=== PATIENT | female | born 1940 | race Caucasian/White ===

== ENCOUNTER 2023-09-16 12:00 | Emergency (ER) | payer MEDICARE, SELFPAY ==
[2023-09-16] VITALS (25 sets, daily range): BP systolic 155–180; BP diastolic 63–73; PULSE 58–126; RESP 11–23; TEMP 36.8; O2SAT 94–99; BMI 23.8
--- NOTE | 2023-09-16 12:21 | ECG_ITS ---
[facility] Test Date: 2023-09-16 Pat Name: SAGRARIO BENITES Department: Room: - Gender: Female Clinical Review Specialist: : [id number] Requested By: [id number] Order Number: [id number] Reading MD: TYSON PEREZ Measurements Intervals [place] Rate: 65 P: 52 [place]: 184 QRS: 15 QRSD: 78 T: 28 QT: 388 QTc: 400 Interpretive Statements 1100 Sinus rhythm 9110 normal ECG Compared to ECG 09/16/2023 12:11:40 Left ventricular hypertrophy no longer present Electronically Signed On 09-16-2023 23:29:49 EST by TYSON PEREZ
--- NOTE | 2023-09-16 12:21 | XR_ITS ---
The [address] [address] Patient Name: SAGRARIO BENITES MRN: [id number] date: 1940 Sex: F Assigned Patient Location: ER Current Patient Location: ER Accession/Order Number: [id number] Exam Date: 09/16/2023 12:53 Report Date: 09/16/2023 13:23 At the request of: LINDSAY UMANA Procedure: XR chest 1V EXAMINATION: XR chest 1V HISTORY: chest pain COMPARISON: No relevant comparison available. TECHNIQUE: AP portable FINDINGS: LUNGS: Low lung volumes. Bibasilar nodules, size and density suggests granulomas VASCULATURE: No increased pulmonary vasculature. PLEURA: No pneumothorax, effusion, or pleural thickening. CARDIAC: No cardiomegaly or cardiac silhouette abnormality. MEDIASTINUM: No visible mass or adenopathy. Aortic atherosclerosis BONES: No fracture or visible bone lesion. OTHER: Negative. XR/XR chest 1V IMPRESSION: No acute disease. Electronically authenticated by: KAL MORALES Date: 09/16/2023 13:23
[2023-09-16 12:38] LABS: Basophils Absolute Auto 0.1 10^3/uL (0.0-0.1); Eosinophils Absolute Auto 0.1 10^3/uL (0.0-0.7); Eosinophils Percent Auto 2.4 % (0.9-7.0); Hematocrit 33.1 % (36.0-48.0); Hemoglobin 10.8 g/dL (12.0-16.0); Immature Granulocytes Abs Auto 0.03 10^3/uL (0.00-0.03); Immature Granulocytes Pct Auto 0.5 % (0.0-0.5); Lymphocytes Absolute Auto 1.1 10^3/uL (1.2-3.8); Lymphocytes Percent Auto 18.1 % (20.5-60.0); Mean Corpuscular HGB Conc 32.6 g/dL (29.9-35.2); Mean Corpuscular Hemoglobin 30.6 pg (26.7-34.0); Mean Corpuscular Volume 93.8 fL (81.0-99.0); Mean Platelet Volume 9.9 fL (9.5-13.5); Monocytes Absolute Auto 0.4 10^3/uL (0.3-0.8); Monocytes Percent Auto 7.5 % (1.7-12.0); Neutrophils Absolute Auto 4.1 10^3/uL (1.4-6.5); Neutrophils Percent Auto 70.5 % (43.0-75.0); Platelet Count 198 10^3/uL (150-450); Red Blood Count 3.53 10^6/uL (4.20-5.40); White Blood Count 5.9 10^3/uL (4.0-11.0)
[2023-09-16 12:51] LABS: Alanine Aminotransferase 17 U/L (14-59); Albumin Globulin Ratio 0.7; Albumin Level 3.1 g/dL (3.4-5.0); Alkaline Phosphatase 66 U/L (46-116); Anion Gap 15.1; Aspartate Amino Transferase 17 U/L (15-37); BUN Creatinine Ratio 24.5; Bilirubin Total 1.4 mg/dL (0.2-1.0); Calcium 9.1 mg/dL (8.5-10.1); Carbon Dioxide 27.4 mmol/L (21.0-32.0); Chloride 101 mmol/L (98-107); Estimated GFR (African America 60 (>=60); Estimated GFR (Non-African Ame 50 (>=60); Globulin 4.6 g/dL; Glucose 155 mg/dL (74-106); Potassium 3.5 mmol/L (3.5-5.1); Sodium 140 mmol/L (136-145); Total Protein 7.7 g/dL (6.4-8.2)
[2023-09-16 12:55] LABS: Magnesium 1.8 mg/dL (1.8-2.4)
[2023-09-16 12:56] LABS: Troponin I High Sensitivity 223.8 pg/mL (4.0-51.3)
--- NOTE | 2023-09-16 13:02 | ED_ITS ---
<Statement entered by Genna Chang MD - 09/16/23 16:00> This documentation has been reviewed and approved. pt case was discussed with me and i agree with the mentioned plan of management HPI - Chest Pain General Chief Complaint: Dizziness Stated Complaint: CHEST PAIN/DIZZINESS Time Seen by Provider: 09/16/23 12:12 Source: patient Mode of arrival: ambulance Limitations: no limitations History of Present Illness HPI narrative: 82-year-old female presents via EMS with multiple complaints. Patient complains neck pain currently however, she had chest pain, dizziness over the course of t weekend. Dizziness described as lightheaded, room spinning. Patient has had chronic symptoms of neck pain, dizziness, and chest pain since head injury in 2020. States neck is worse today. Currently denies any chest pain. Denies prior history of CAD. + a little, shortness of breath. Denies nausea. Since head injury, patient states delay in ability to answer questions. There are some inconsistencies while obtaining her history. History is somewhat limited. Patient is a poor historian Quality:?as above Severity:?moderate Timing:?as above, intermittent CP, dizziness. Constant neck pain Context: Normal setting and activity? Modifying factors:?neck pain worse with palpation, movement. Associated symptoms: as above Related Data Home Medications Medication Instructions Recorded Confirmed biotin 10,000 mcg capsule 10,000 mcg PO BID 09/16/23 09/16/23 escitalopram oxalate 10 mg tablet 10 mg PO DAILY 09/16/23 09/16/23 latanoprost 0.005 % eye drops 1 drp ophthalmic (eye) DAILY 09/16/23 09/16/23 losartan 100 1 tab PO DAILY 09/16/23 09/16/23 mg-hydrochlorothiazide 12.5 mg tablet melatonin 3 mg tablet 3 mg PO BEDTIME 09/16/23 09/16/23 memantine 5 mg tablet 5 mg PO BID 09/16/23 09/16/23 metoprolol succinate 50 mg 50 mg PO DAILY 09/16/23 09/16/23 tablet,extended release 24 hr Allergies Allergy/AdvReac Type Severity Reaction Status Date / Time No Known Drug Allergies Allergy Verified 09/16/23 12:10 Review of Systems ROS Narrative CONST: Denies fever, chills HENT: Denies congestion, sore throat EYES: Denies eye redness, visual disturbance RESP: + slight shortness of breath. Denies chest tightness, choking, cough, stridor, wheezing CV: +chest pain.? Denies palpitations, peripheral edema GI: Denies abd pain, nausea, vomiting : Denies dysuria, flank pain MS: + neck pain. Denies back pain, myalgias SKIN: Denies color change, rash NEURO: + dizziness. Denies numbness, weakness PSYCHIATRIC: Denies confusion, agitation PFSH PFSH Social History Smoking status: Never smoker Exam Narrative Exam Narrative: Vital signs reviewed Nurses notes noted CONST: Nontoxic, well appearing, well nourished, in no distress.? No diaphoresis.?? HENT: normocephalic, atraumatic, moist mucous membrane, no abnormalities of the nose noted, hearing normal EYES: normal appearing conjunctiva, no apparent discharge bilat NECK: normal appearance, no JVD CV: normal rate, regular rhythm, no murmur, no peripheral edema RESP: normal effort, speaking in complete sentences. Lung sounds clear and equal bilat.? No wheezes, rales, rhonchi GI: normal bowel sounds, soft, nontender, no distension : no CVA tenderness MS: no edema, tenderness SKIN: no pallor NEURO: A&Ox 3 PSYCH: normal mood, affect Constitutional Vital Signs, click to edit/add: Last Vital Signs Temp 98.2 F 09/16/23 12:04 Pulse 61 09/16/23 16:40 Resp 20 09/16/23 16:40 BP 180/63 H 09/16/23 15:06 Pulse Ox 97 09/16/23 15:50 O2 Del Method Room Air 09/16/23 12:04 Course Reevaluation(s) Reevaluation #1: Reports that patient is chest pain-free at present Time: 13:28 Consultations Consultation #1: Patient discussed with Dr. Dobbs. Patient [facility] to [facility] Time: 15:27 Vital Signs Vital signs: Vital Signs Temperature 98.2 F 09/16/23 12:04 Pulse Rate 68 09/16/23 12:04 Respiratory Rate 18 09/16/23 12:04 Blood Pressure 155/73 H 09/16/23 12:04 Pulse Oximetry 99 09/16/23 12:04 Oxygen Delivery Method Room Air 09/16/23 12:04 Temperature 98.2 F 09/16/23 12:04 Pulse Rate 61 09/16/23 16:40 Respiratory Rate 20 09/16/23 16:40 Blood Pressure 180/63 H 09/16/23 15:06 Pulse Oximetry 97 09/16/23 15:50 Oxygen Delivery Method Room Air 09/16/23 12:04 MDM - Chest Pain MDM Narrative Medical decision making narrative: This is a pleasant 82-year-old female who presents to the emergency department via EMS with complaint of chest pain, neck pain, dizziness. Initially, reported that she has been having chest pain over the past 3-4 days. However, patient states that this is chronic, and ongoing. Patient is a poor historian, further history is limited. Patient with history of head injury when she fell and put her head through some drywall a year ago. Initially, states that occurred in 2020. Son is at bedside and states that mentation is at baseline. Locating pain to the upper sternal region. Complains of neck pain on either side of her posterior musculature, neck with associated tenderness. Dizziness described as both room spinning and lightheaded. No findings of cardiac disease in current EHR or old EHR at this hospital. Has had a little shortness of breath as well. Upon arrival, patient mildly hypertensive, afebrile, vital signs otherwise stable. On exam, nontoxic, well-appearing patient in no apparent distress. She is slow to respond to some questions. At times seems very unsure of her answers. She is moving all extremities. Heart regular rate and rhythm. Lung sounds clear and equal bilaterally. No peripheral edema. EKG performed at 1212 reveals sinus rhythm at [address] elevation. Normal axis. No other concerning changes present. Labs reveal elevated troponin of 223.8. D-dimer was also elevated at 3.01. Patient is a little anemic at 10.8 and 33.1. No leukocytosis, thrombocytopenia, electrolyte imbalance, renal impairment. LFTs unremarkable. Lipase 33. Chest x-ray imaging reveals no acute changes CT head and neck imaging, per radiologist reveals no acute findings CTA chest reveals, per radiology report, no evidence of PE. Patient given 4 baby aspirin. She did have some chest pain during ED course and was given nitroglycerin. She otherwise remained stable. With elevated troponin findings, concern raised for NSTEMI. Patient was discussed with hospitalist at [facility] and was excepted there for further evaluation, monitoring and care. Medical Records Data Attestation: I reviewed the patient's medical records. Lab Data Attestation: I reviewed the patient's lab results. Labs: Lab Results 09/16/23 09/16/23 Range/Units 12:28 13:49 WBC 5.9 (4.0-11.0) 10^3/uL RBC 3.53 L (4.20-5.40) 10^6/uL Hgb 10.8 L (12.0-16.0) g/dL Hct 33.1 L (36.0-48.0) % MCV 93.8 (81.0-99.0) fL MCH 30.6 (26.7-34.0) pg MCHC 32.6 (29.9-35.2) g/dL RDW 13.0 (11.0-15.0) % Plt Count 198 (150-450) 10^3/uL MPV 9.9 (9.5-13.5) fL Neut % (Auto) 70.5 (43.0-75.0) % Lymph % (Auto) 18.1 L (20.5-60.0) % Rankin % (Auto) 7.5 (1.7-12.0) % Eos % (Auto) 2.4 (0.9-7.0) % Baso % (Auto) 1.0 (0.2-2.0) % Neut # (Auto) 4.1 (1.4-6.5) 10^3/uL Lymph # (Auto) 1.1 L (1.2-3.8) 10^3/uL Rankin # (Auto) 0.4 (0.3-0.8) 10^3/uL Eos # (Auto) 0.1 (0.0-0.7) 10^3/uL Baso # (Auto) 0.1 (0.0-0.1) 10^3/uL Abs Immat Gran (auto) 0.03 (0.00-0.03) 10^3/uL Imm/Tot Granulo (auto) 0.5 (0.0-0.5) % D-Dimer 3.01 H* (<=0.59) mg/L FEU Sodium 140 (136-145) mmol/L Potassium 3.5 (3.5-5.1) mmol/L Chloride 101 (98-107) mmol/L Carbon Dioxide 27.4 (21.0-32.0) mmol/L Anion Gap 15.1 BUN 26.0 H (7.0-18.0) mg/dL Creatinine 1.06 H (0.55-1.02) mg/dL Est GFR ( Amer) 60 (>=60) Est GFR (Non-Af Amer) 50 L (>=60) BUN/Creatinine Ratio 24.5 Glucose 155 H (74-106) mg/dL Calcium 9.1 (8.5-10.1) mg/dL Magnesium 1.8 (1.8-2.4) mg/dL Total Bilirubin 1.4 H (0.2-1.0) mg/dL AST 17 (15-37) U/L ALT 17 (14-59) U/L Alkaline Phosphatase 66 (46-116) U/L Troponin I High Sens 223.8 H* 161.7 H* (4.0-51.3) pg/mL NT-Pro-B Natriuret Pep 1114.0 (<=1800.0) pg/mL Total Protein 7.7 (6.4-8.2) g/dL Albumin 3.1 L (3.4-5.0) g/dL Globulin 4.6 g/dL Albumin/Globulin Ratio 0.7 Lipase 33.0 (16.0-77.0) U/L ECG Data ECG interpretation date: 09/16/23 ECG interpretation time: 12:30 Ischemic changes: other (none) Discharge Plan Discharge Chief Complaint: Dizziness Clinical Impression: Non-ST elevation (NSTEMI) myocardial infarction, Hypertension Dyspnea Qualifiers: Dyspnea type: unspecified Qualified Code(s): R06.00 - Dyspnea, unspecified Chest pain Qualifiers: Chest pain type: other chest pain Qualified Code(s): R07.89 - Other chest pain Patient Disposition: [facility] Time of Disposition Decision: 15:08 Discharge Location: [facility] Mode of Transportation: EMS
[2023-09-16 13:06] LABS: D Dimer 3.01 mg/L FEU (<=0.59)
--- NOTE | 2023-09-16 13:07 | CT_ITS ---
The [address] [address] Patient Name: SAGRARIO BENITES MRN: [id number] date: 1940 Sex: F Assigned Patient Location: ER Current Patient Location: ER Accession/Order Number: [id number] Exam Date: 09/16/2023 13:00 Report Date: 09/16/2023 13:20 At the request of: LINDSAY UMANA Procedure: CT head/brain wo con EXAM: CT head/brain wo con HISTORY: dizzy, neck pain posterior head pain COMPARISON: None. TECHNIQUE: CT head without contrast Dose reduction techniques were achieved by using automated exposure control and/or adjustment of mA and/or kV according to patient size and/or use of iterative reconstruction technique. FINDINGS: The ventricles, sulci, and remaining CSF containing spaces maintain age-appropriate volume and symmetry. No herniation or hydrocephalus. The segura matter/white matter differentiation is maintained throughout. Periventricular and deep white matter foci of decreased attenuation. No CT evidence of contemporary infarction. No acute intracranial hemorrhage or parenchymal mass. The calvarium and skull base are intact. Opacification of several left mastoid air cells. Atherosclerotic vascular calcifications. CT/CT head/brain wo con IMPRESSION: 1. No acute intracranial abnormality. 2. Moderate chronic microvascular ischemic white matter disease. Electronically authenticated by: SARAH BETH PATEL Date: 09/16/2023 13:20
--- NOTE | 2023-09-16 13:07 | CT_ITS ---
[address] [address] Patient Name: SAGRARIO BENITES MRN: [id number] date: 1940 Sex: F Assigned Patient Location: ER Current Patient Location: ER Accession/Order Number: [id number] Exam Date: 09/16/2023 13:00 Report Date: 09/16/2023 13:24 At the request of: LINDSAY UMANA Procedure: CT cervical spine wo con EXAM: CT cervical spine wo con HISTORY: Neck pain. COMPARISON: None. TECHNIQUE: Contiguous transaxial images obtained from skullbase through cervical spine without administration of intravenous contrast. Coronal and sagittal reformations were obtained. Dose reduction: mA and/or kV are were adjusted by automated exposure control software based upon patients height and weight. FINDINGS: There is no prevertebral soft tissue swelling or acute cervical spine fracture. There is multilevel degenerative disc disease of the cervical spine, moderate in severity and most pronounced at C6-C7. There is no significant cervical listhesis. There is multilevel and bilateral uncovertebral joint osteoarthritis, most pronounced at C3-C4, C4-C5, C5-C6, and C6-C7. There is also multilevel and bilateral facet joint osteoarthritis. There is partial ankylosis of the C4-C5 facet joints. Uncovertebral and facet joint osteoarthritis contribute to neural foraminal narrowing. Neural foramina narrowing is most pronounced on the right at C4-C5. There is partial opacification of left mastoid air cells. There is biapical pleural-parenchymal scarring. There is carotid artery atherosclerosis. CT/CT cervical spine wo con IMPRESSION: 1. No acute cervical spine fracture. 2. Multilevel degenerative disc disease of the cervical spine that is most pronounced at C6-C7. There is associated uncovertebral and facet joint osteoarthritis that contribute to neural foraminal narrowing that is most pronounced on the right at C4-C5. 3. Carotid artery atherosclerosis. Electronically authenticated by: LINDSAY DECKER Date: 09/16/2023 13:24
--- NOTE | 2023-09-16 14:06 | CT_ITS ---
The [address] [address] Patient Name: SAGRARIO BENITES MRN: [id number] date: 1940 Sex: F Assigned Patient Location: ER Current Patient Location: ER Accession/Order Number: [id number] Exam Date: 09/16/2023 13:55 Report Date: 09/16/2023 14:34 At the request of: LINDSAY UMANA Procedure: CT angio chest CT angio chest, 09/16/2023 1:55 PM EST INDICATION: chest pain, elevated d-dimer COMPARISON: There is no appropriate prior study for comparison. TECHNIQUE: Axial low-dose images of 1 millimeters are obtained from the thoracic outlet with contrast . 3-D MIP images were obtained. Dose reduction techniques were achieved by using automated exposure control and/or adjustment of mA and/or kV according to patient size and/or use of iterative reconstruction technique. FINDINGS: No endoluminal filling defect within the main pulmonary arteries, lobar and lobular branches is noted. There is no obvious right ventricle strain. Bilateral apical scars are noted. Bilateral calcified granulomas are noted. There is mild pleural effusion with adjacent passive and linear atelectasis. The central tracheobronchial tree is unremarkable. No mediastinal lymph node enlargement by size criteria is noted. Right hilar lymph node measuring 0.9 cm. There is mild cardiomegaly. Calcification within the spleen and liver likely due to prior granulomatous disease. Otherwise, the visualized portions of the solid abdominal organs are unremarkable. Bone: There is no suspicious osteolytic or osteoblastic lesion. CT/CT angio chest IMPRESSION: No evidence of pulmonary embolus in the current study. Mild bilateral pleural effusion. Mild cardiomegaly. Electronically authenticated by: PATY CARTER Date: 09/16/2023 14:34
[2023-09-16 14:21] LABS: Troponin I High Sensitivity 161.7 pg/mL (4.0-51.3)
[2023-09-16] MEDS: NITROGLYCERIN 0.4 MG BOTTLE PO (15:03)
== END 2023-09-16 17:16 | disposition short-term general hospital (02) ==
PROVIDERS: Physician Assistant; Emergency Provider Emergency Medicine
DX: I21.4 Non-ST elevation (NSTEMI) myocardial infarction (principal); M54.2 Cervicalgia; R42 Dizziness and giddiness; R07.9 Chest pain, unspecified; M50.323 Other cervical disc degeneration at C6-C7 level; R06.02 Shortness of breath; R79.89 Other specified abnormal findings of blood chemistry; I10 Essential (primary) hypertension; R06.00 Dyspnea, unspecified
CPT/HCPCS: 36415; 70450; 71045; 71275; 72125; 80053; 83690; 83735; 83880; 84484; 85025; 85378; 93005; 99285; Q9967